=== PATIENT | female | born 1995 | race Caucasian/White ===

== ENCOUNTER 2022-09-20 08:00 | Outpatient (CLI) | payer OTHER ==
[2022-09-20 20:47] LABS: BASOPHILS # (AUTO) 0.1 10^3/uL (0.0-0.1); BASOPHILS % (AUTO) 0.6 %; EOSINOPHILS # (AUTO) 0.1 10^3/uL (0.0-0.7); EOSINOPHILS % (AUTO) 1.4 %; HCT - HEMATOCRIT 45.8 % (37.0-47.0); HGB - HEMOGLOBIN 15.3 g/dL (12.0-16.0); LYMPHOCYTES # (AUTO) 2.6 10^3/uL (1.5-3.5); LYMPHOCYTES % (AUTO) 32.8 %; MEAN CORPUSCULAR HGB CONC 33.4 g/dL (32.0-36.0); MEAN CORPUSCULAR VOLUME 92.9 fL (81.0-99.0); MEAN PLATELET VOLUME 10.7 fL (7.9-10.8); MONOCYTES # (AUTO) 0.6 10^3/uL (0.0-1.0); MONOCYTES % (AUTO) 7.7 %; NEUTROPHILS # (AUTO) 4.4 10^3/uL (1.5-6.6); NEUTROPHILS % (AUTO) 57.2 %; PLT - PLATELET COUNT 271 10^3/uL (130-450); RED BLOOD COUNT 4.93 10^6/uL (4.20-5.40); WHITE BLOOD COUNT 7.8 x10^3/uL (4.8-10.8)
[2022-09-20 21:02] LABS: ALBUMIN 4.6 g/dL (3.2-5.5); ALBUMIN/GLOBULIN RATIO 1.9 (1.0-2.2); ALKALINE PHOSPHATASE 39 IU/L (42-121); ALT ALANINE AMINOTRANSFERASE 18 IU/L (10-60); AST ASPARTATE AMINOTRANSFERASE 18 IU/L (10-42); BILIRUBIN,TOTAL 0.3 mg/dL (0.2-1.0); BUN - BLOOD UREA NITROGEN 10 mg/dL (6-20); CALCIUM 9.7 mg/dL (8.5-10.3); CARBON DIOXIDE - CO2 24 mmol/L (21-32); CHLORIDE 108 mmol/L (101-111); CREATININE 0.8 mg/dL (0.4-1.0); GFR - MDRD 86 (>89); GLUCOSE 89 mg/dL (70-100); LIPASE 37 U/L (22-51); POTASSIUM 3.9 mmol/L (3.5-5.0); SODIUM 139 mmol/L (135-145)
[2022-09-20 21:09] LABS: CRP - C-REACTIVE PROTEIN < 1.0 mg/dL (0-1.0)
== END 2022-09-20 23:59 | disposition home or self-care (01) ==
LOC: LAB.N 08:00
PROVIDERS: ATTEND Registered Nurse
DX: R10.9 Unspecified abdominal pain (principal); R19.7 Diarrhea, unspecified; R11.2 Nausea with vomiting, unspecified
CPT/HCPCS: 36415; 80053; 83690; 85025; 86140

== ENCOUNTER 2023-01-15 09:30 | Outpatient (CLI) | payer OTHER | END 2023-01-15 23:59 | disposition home or self-care (01) | LOC: LAB.N 09:30 | PROVIDERS: ATTEND Family Medicine | DX: R19.7 Diarrhea, unspecified (principal) | CPT/HCPCS: 83993; 87045; 87046; 87329; 87427; 87493 ==

== ENCOUNTER 2023-06-09 16:02 | Outpatient (CLI) | payer OTHER ==
[~2023-06-09 16:02] MED LIST: GADOBUTROL 7.5 MMOL/7.5 ML VIAL ONE
[2023-06-09] MEDS ORDERED: GADOBUTROL 7.5 MMOL/7.5 ML VIAL IVP ONE (17:13)
--- NOTE | 2023-06-10 09:49 | MRI Report ---
PROCEDURE: WRIST W/WO - RT INDICATIONS: WRIST MASS CONTRAST: GADAVIST 6.1 ML TECHNIQUE: Noncontrast coronal proton density fast spin echo and T2 fast spin echo with fat saturation; coronal 3-D gradient echo, axial T1 spin echo and T2 fast spin echo with fat saturation, axial T1 spin echo w ith fat saturation, sagittal T1 spin echo through the wrist. Post-contrast axial, coronal, and sagit alexandra T1 spin echo with fat saturation through the wrist. COMPARISON: None FINDINGS: Image quality: Excellent. Bones and cartilage: No suspicious osseous enhancement. The carpal bones are normally aligned. No bone marrow contusions or fractures. No evidence for avascular necrosis. Overlying cartilage surfa moriah appear normal. Carpal ligaments: The scapholunate and lunotriquetral ligaments appear intact. In the absence of in tra-articular contrast, the extrinsic carpal ligaments are not well identified. On sagittal images, the pisohamate ligament appears intact. Triangular fibrocartilage complex: The triangular fibrocartilage appears intact. The adjacent menis guy homolog appears normal in the absence of intra-articular contrast. The extensor carpi ulnaris te ndon is normal in location and morphology. Tendons and soft tissues: Well-circumscribed oval homogeneously T2 hyperintense and T1 hypointense s tructure over volar aspect of wrist at the level of trapezium is seen and measures up to 1.4 x 0.7 x 1.2 cm in size. After contrast infusion, thin peripheral rim enhancement is noted. No fluid collectio n is seen. No suspicious soft tissue enhancement. The carpal tunnel structures appear normal, includ ing the median nerve. The ulnar nerve appears normal within Guyon's canal. All six extensor tendon compartments demonstrate normal morphology, without pathologic tendon sheath fluid. IMPRESSION: 1. Finding is most consistent with a 1.4 x 0.7 x 1.2 cm ganglion cyst over volar and radial aspect of right wrist at the level of trapezium. No enhancing soft tissue mass. No other fluid collection. 2. Intrinsic and extrinsic wrist ligaments are grossly intact. Triangular fibrocartilage complex is i ntact. 3. No fracture or dislocation. No evidence of avascular necrosis. No area of abnormal intraosseous en hancement. 4. Extensor and flexor tendons are intact. Reviewed by: Ryan Alcaraz MD on 06/10/2023 9:48 AM PDT Approved by: Ryan Alcaraz MD on 06/10/2023 9:48 AM PDT Station ID: [id number]
== END 2023-06-09 16:03 | disposition home or self-care (01) ==
LOC: DI 16:02
PROVIDERS: ATTEND Orthopaedic Surgery
DX: R22.31 Localized swelling, mass and lump, right upper limb (principal)
CPT/HCPCS: 73223; A9585

== ENCOUNTER 2024-02-24 09:09 | Outpatient (CLI) | payer OTHER ==
--- NOTE | 2024-02-24 15:55 | XRAY Report ---
PROCEDURE: Cervical Spine 2-3V INDICATIONS: CERVICAL SPASM TECHNIQUE: 3 view(s) of the cervical spine were acquired. COMPARISON: None. FINDINGS: Bones: No fractures or dislocations to the T1 level. Straightening of normal cervical lordosis is s een. The lateral masses of C1 appear intact on the odontoid view. No suspicious bony lesions. Soft tissues: No prevertebral soft tissue swelling. IMPRESSION: No displaced fracture or traumatic subluxation. Reviewed by: Ryan Alcaraz MD on 02/24/2024 3:53 PM PDT Approved by: Ryan Alcaraz MD on 02/24/2024 3:53 PM PDT Station ID: [id number]
== END 2024-02-24 09:10 | disposition home or self-care (01) ==
LOC: DI.N 09:09
PROVIDERS: ATTEND Family Medicine
DX: M62.838 Other muscle spasm (principal)

== ENCOUNTER 2024-04-11 16:19 | Outpatient (CLI) | payer OTHER ==
--- NOTE | 2024-04-11 17:52 | MRI Report ---
PROCEDURE: Cervical Spine WO INDICATIONS: CERVICALGIA TECHNIQUE: Noncontrast sagittal T1 spin echo and T2 fast spin echo, sagittal STIR, foraminal oblique sagittal T2 fast spin echo, and axial gradient echo or T2 fast spin echo through the cervical spine. COMPARISON: Correlation is made with cervical spine plain films, 02/24/2024. FINDINGS: Image quality: Diagnostic, with note made of motion artifact. Alignment and Curvature: There is straightening of the normal cervical lordosis. No significant AP alignment abnormality can be seen. Bone Marrow: Marrow demonstrates normal overall signal. Spinal Cord: Visualized spinal cord has normal size and signal. No cerebellar tonsillar herniation. Paraspinous Soft Tissues: No paravertebral masses. Prevertebral soft tissues are normal in thicknes s. C2-C3: Normal in appearance. C3-C4: Normal in appearance. C4-C5: Normal in appearance. C5-C6: The disc height is relatively well preserved. Mild disc osteophyte complex is seen. There is a mild central disc osteophyte protrusion. No neuroforaminal narrowing is seen. Mild to moderate central canal narrowing is seen, with minimal associated mass effect upon the ventral spinal cord. C6-C7: The disc height is well-preserved. There is loss of disc signal seen. Mild disc osteophyte c omplex is seen. There is a central disc osteophyte protrusion. No neural foraminal narrowing is seen. Mild to moderate central canal narrowing is seen. Associated mass effect is seen upon the ventral s mariana cord. C7-T1: Normal in appearance. 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 Straightening of the normal cervical lordosis is seen, which is commonly observed in patients with mu scular spasm. Reviewed by: Attila Jane MD on 04/11/2024 4:51 PM BRI Approved by: Attila Jane MD on 04/11/2024 4:51 PM [facility]CAMERON Station ID: [id number]
== END 2024-04-11 16:20 | disposition home or self-care (01) ==
LOC: DI 16:19
PROVIDERS: ATTEND Nurse Practitioner Family
DX: M47.22 Other spondylosis with radiculopathy, cervical region (principal)